=== PATIENT | male | born 1990 | race Hispanic/Latino ===

== ENCOUNTER 2020-11-12 19:43 | Emergency (ER) | payer OTHER ==
[2020-11-12 20:08] LABS: BASOPHILS % (AUTO) 0.5 % (0.0-5.0); EOSINOPHILS % (AUTO) 0.2 % (0.0-8.0); HEMATOCRIT 42.6 % (42-54); MEAN CORPUSCULAR HEMOGLOBIN 28.8 pg (27.0-33.0); MEAN CORPUSCULAR HGB CONC 34.5 g/dL (32.0-36.0); MEAN CORPUSCULAR VOLUME 83.5 fL (79-99); MONOCYTES % (AUTO) 8.5 % (3.0-13.0); NEUTROPHILS % (AUTO) 68.3 % (40.0-77.0); PLATELET COUNT (AUTO) 317 K/uL (130-400); WHITE BLOOD COUNT (AUTO) 12.9 K/uL (4.8-10.8)
[2020-11-12 20:08] LABS: APPEARANCE,URINE Clear (CLEAR); BILIRUBIN,URINE Negative (NEGATIVE); COLOR,URINE Yellow (YELLOW); GLUCOSE, URINE (UA) Negative (NEGATIVE); KETONES,URINE Negative (NEGATIVE); LEUKOCYTE ESTERASE ,URINE Negative (NEGATIVE); NITRATE,URINE Negative (NEGATIVE); OCCULT BLOOD,URINE Negative (NEGATIVE); PROTEIN,URINE Negative (NEGATIVE); UROBILINOGEN,URINE 0.2 mg/dL (0.2-1.0)
[2020-11-12 20:16] LABS: AMPHET/METH SCREEN,URINE NEGATIVE (NEGATIVE); BARBITURATE SCREEN, URINE NEGATIVE (NEGATIVE); BENZODIAZEPINES SCREEN,URINE NEGATIVE (NEGATIVE); CANNABINOID SCREEN,URINE NEGATIVE (NEGATIVE); COCAINE SCREEN,URINE NEGATIVE (NEGATIVE); OPIATE SCREEN,URINE NEGATIVE (NEGATIVE); PHENCYCLIDINE SCREEN,URINE NEGATIVE (NEGATIVE)
[2020-11-12 20:19] LABS: INR 1.03 (0.85-1.15); PROTHROMBIN TIME 11.2 SEC (9.6-11.6)
[2020-11-12 20:21] LABS: PARTIAL THROMBOPLASTIN TIME 22.8 SEC (26.3-35.5)
[2020-11-12 20:27] LABS: ALBUMIN 3.6 g/dL (3.5-5.0); BILIRUBIN,TOTAL 0.3 mg/dL (0.2-1.0); CREATININE 1.1 mg/dL (0.5-1.5); POTASSIUM 3.4 mmol/L (3.5-5.1); TOTAL PROTEIN, SERUM 6.9 g/dL (6.0-8.3)
[2020-11-12] MEDS ORDERED: SODIUM CHLORIDE 0.9% 1000ML 1,000 ML IV ONE ×2 (22:40→23:27)
[2020-11-12] MEDS ORDERED: MAG HYDROX/AL HYDROX/SIMETH ES 30 ML SUSP UDCUP ONE (22:44)
[2020-11-12] MEDS ORDERED: LIDOCAINE HCL 2% VISCOUS 15 ML UDCUP ONE (22:44)
[2020-11-12] MEDS ORDERED: FAMOTIDINE/PF 20 MG/2 ML VIAL IV ONE (22:49)
[2020-11-12] MEDS ORDERED: PANTOPRAZOLE 40 MG/VIAL ONE (22:49)
== END 2020-11-13 00:24 | disposition home or self-care (01) ==
LOC: EDH 19:43
DX: R07.89 Other chest pain (principal); E86.0 Dehydration; R10.13 Epigastric pain
CPT/HCPCS: 36415; 80053; 80305; 81003; 82550; 83605 ×2; 83690; 84484; 85025; 85610; 85730; 93005; 96361; 96374; 96375; 99284; C9113; J3490; J7030 ×2

== ENCOUNTER 2020-11-13 01:40 | Emergency (ER) | payer OTHER ==
[2020-11-13] MEDS ORDERED: DiphenhydrAMINE HCL 50 MG/ML VIAL ONE (03:08)
== END 2020-11-13 03:28 | disposition home or self-care (01) ==
LOC: EDH 01:40
DX: F43.0 Acute stress reaction (principal)
CPT/HCPCS: 93005; 96372; 99283; J1200

== ENCOUNTER 2021-05-09 01:48 | Emergency (ER) | payer OTHER ==
[~2021-05-09] VITALS: Ht 152.4 cm; Wt 94.8 kg
[2021-05-09 02:11] VITALS: BP 130/79
[2021-05-09] MEDS ORDERED: LORA-192 PO (02:29)
== END 2021-05-09 02:42 | disposition home or self-care (01) ==
LOC: EDH 01:48
DX: F41.9 Anxiety disorder, unspecified (principal); K21.9 Gastro-esophageal reflux disease without esophagitis

== ENCOUNTER → 2021-09-24 | Outpatient (CLI) | payer OTHER ==
[~2021-09-24] MED LIST: LORA-192 PO
== END | disposition home or self-care (01) ==
LOC: SLP 20:30
PROVIDERS: ATTEND Family Medicine
DX: G47.33 Obstructive sleep apnea (adult) (pediatric) (principal); R06.83 Snoring
CPT/HCPCS: 95810; 95811